=== PATIENT | male | born 2005 | race Caucasian/White ===

== ENCOUNTER 2023-06-04 14:31 | Emergency (ER) | payer MEDICAID, SELFPAY ==
[2023-06-04 14:48] VITALS: BP 130/74; PULSE 81; RESP 14; TEMP 36.8; O2SAT 98; BMI 25.8
[2023-06-04 16:17] LABS: Basophils % 0.3 %; Eosinophils # 0.2 10^3/uL (0.0-0.8); Eosinophils % 1.6 %; Hematocrit 39.3 % (42.0-52.0); Hemoglobin 12.5 g/dL (11.7-16.6); Lymphocytes # 1.3 10^3/uL (1.5-6.5); Lymphocytes % 13.6 %; Mean Corpuscular HGB Conc 31.8 g/dL (30.0-36.0); Mean Corpuscular Hemoglobin 26.6 pg (28.0-34.0); Mean Corpuscular Volume 83.6 fl (80-94); Mean Platelet Volume 8.9 fL (7.4-10.4); Monocytes # 0.7 10^3/uL (0.2-0.9); Monocytes % 7.2 %; Neutrophils # 7.07 10^3/uL (1.8-8.0); Neutrophils % 77.1 %; Nucleated Red Blood Cells % 0 %; Platelet Count 305 10^3/cmm (130-400); Red Cell Distribution Width 12.2 % (12.1-15.1); White Blood Count 9.2 10^3/uL (4.5-13.0)
[2023-06-04] MEDS: lidocaine 1% INJ 10 mL (per mL) 5 ML INTRADERMA (19:07)
[2023-06-04 20:35] VITALS: PULSE 89; RESP 16; O2SAT 96
--- NOTE | 2023-06-04 21:49 | W.ED.SKABFB ---
HPI - Skin/Abscess/Foreign Bdy General: Chief complaint: Skin/Abscess/Foreign Body Stated complaint: Spot on rear Time Seen by Provider: 06/04/23 18:16 Source: patient Mode of arrival: ambulatory Limitations: no limitations History of Present Illness: Patient presents to the emergency department today for evaluation treatment of worsening redness, swelling, and tenderness of his right buttock. Patient states that 3 weeks ago he got what looked like a bite to his right inferior gluteal region. He states it really did not change much for quite some time but, over the last few days has gotten significantly worse with worsening redness, swelling, and pain. He admits he had been picking and squeezing at the area previously. He denies any known history of MRSA. Review of Systems General: Reports: 10 or more systems reviewed and unremarkable except in HPI and below Physical Exam Const: COMMON NORMALS: no acute distress, patient oriented x3 and alert HENMT: COMMON NORMALS: normocephalic, atraumatic and hearing grossly normal bilaterally HEAD & SCALP: normocephalic and atraumatic Eye: COMMON NORMALS: Equal, round and reactive pupils present, EOMs intact bilaterally and conjunctivae normal CONJUNCTIVA: Yes conjunctivae normal PUPIL: Yes Equal, round and reactive pupils present Neck/C-Spine: COMMON NORMALS: full ROM and no JVD Lymph: LYMPHATIC: no lymphadenopathy noted Resp: COMMON NORMALS: normal respiratory effort, No retractions and No use of accessory muscles Cardio: COMMON NORMALS: no JVD and regular rate RATE: regular rate Neuro: COMMON NORMALS: patient oriented x3 SENSORIUM/ORIENTATION: Yes alert Psych: COMMON NORMALS: mental status grossly normal, Normal thought process present, cooperative and normal affect THOUGHT PROCESS: Normal thought process present Skin: COMMON NORMALS: no rashes or lesions noted and turgor normal NARRATIVE SKIN EXAM: Patient has an area of erythematous induration to the right inferior medial glute approximately 6 cm in diameter. There is noticeable central fluctuance. It is tender to touch. GENERAL SKIN EXAM: no rashes or lesions noted and turgor normal Procedures Abscess I/D Site: other (Right gluteus) Side (if applicable): right Sedation/analgesia: none Local Anesthetic: lidocaine 1% Amount of anesthesia used (mL): 3 Technique: incised with #11 blade Amount of fluid expressed (mL): 6 Irrigation: Yes Packing used?: plain Complications: other (Patient is extremely anxious and had a hard time remaining still. He got nauseated.) Course Vital Signs: Vital signs: Vital Signs Temperature 98.2 F 06/04/23 14:48 Pulse Rate 89 06/04/23 20:35 Respiratory Rate 16 06/04/23 20:35 Blood Pressure 130/74 06/04/23 14:48 Pulse Oximetry 96 06/04/23 20:35 Oxygen Delivery Me thod Room Air 06/04/23 14:48 MDM - Skin/Abscess/Foreign Bdy Medicial Decision Making Patient presented to the emergency department for concerns of worsening area of cellulitis. Over the last couple of days sounds like it is developed into an abscess. It is not spontaneously draining and, on examination was found to have a significant area of fluctuance. Abscess was locally anesthetized and 11 blade used to create a 0.75 cm incision. There was spontaneous draining of thick green and yellow material. Wound was prodded to continue the release of the infectious material. Due to the depth of the abscess, we did place wound packing. Patient took approximately 4 cm of plain wood packing within the wound. Wound was then covered with bandaging. He was told to return in 48 hours for wound packing removal. Patient was started on Bactrim due to concerns for potential MRSA. Patient was given return precautions. He was given a couple of days off work. Patient verbalized understanding and agreement to treatment plan. Differential Diagnosis Likely abscess of skin or subcutaneous tissue, cellulitis, eczema, insect bites and impetigo Lab Data 06/04/23 16:02 Laboratory Results WBC 9.2 10^3/uL (4.5-13.0) 06/04/23 16:02 RBC 4.70 10^6/uL (4.1-5.3) 06/04/23 16:02 Hgb 12.5 g/dL (11.7-16.6) 06/04/23 16:02 Hct 39.3 % (42.0-52.0) L 06/04/23 16:02 MCV 83.6 fl (80-94) 06/04/23 16:02 MCH 26.6 pg (28.0-34.0) L 06/04/23 16:02 MCHC 31.8 g/dL (30.0-36.0) 06/04/23 16:02 RDW 12.2 % (12.1-15.1) 06/04/23 16:02 Plt Count 305 10^3/cmm (130-400) 06/04/23 16:02 MPV 8.9 fL (7.4-10.4) 06/04/23 16:02 Neut % (Auto) 77.1 % 06/04/23 16:02 Lymph % (Auto) 13.6 % 06/04/23 16:02 Borden % (Auto) 7.2 % 06/04/23 16:02 Eos % (Auto) 1.6 % 06/04/23 16:02 Baso % (Auto) 0.3 % 06/04/23 16:02 Neut # (Auto) 7.07 10^3/uL (1.8-8.0) 06/04/23 16:02 Lymph # (Auto) 1.3 10^3/uL (1.5-6.5) L 06/04/23 16:02 Borden # (Auto) 0.7 10^3/uL (0.2-0.9) 06/04/23 16:02 Eos # (Auto) 0.2 10^3/uL (0.0-0.8) 06/04/23 16:02 Baso # (Auto) 0.0 10^3/uL (0.0-0.1) 06/04/23 16:02 Nucleated RBC % (auto) 0 % 06/04/23 16:02 Nucleated RBCs # 0.0 /100WBC 06/04/23 16:02 Discharge Plan Discharge Patient Disposition: Home Clinical Impression: Abscess of skin or subcutaneous tissue, Cellulitis Condition: Stable Prescriptions: New sulfamethoxazole-trimethoprim 800-160 mg tablet 1 tab PO BID 10 Days Qty: 20 0RF Discharge Orders: Discharge ED (Routine); Ordered 06/04/23 Ordered By: Millicent Reese Discharge Diet: Usual diet Discharge Activity: Increase activity as tolerated Patient Instructions: Cellulitis (ED), Abscess (ED) Activity Restrictions/Additional Instructions: Examination today shows that you have developed not only cellulitis-infection of the skin, but also an abscess-a pocket of infection within the wound. Antibiotics greatly help treat cellulitis but, often do not work on abscesses due to the amount of pus present in the wound. For that reason, we numbed your skin and made an incision which released a significant amount of green and yellow purulent material from the abscess. You do have wound packing in place to help act as a wick to help continue releasing any residual purulent material from the wound without allowing the incision to heal prematurely. You need to have a wound check in 48 hours here in the emergency department to have the wound packing removed. I am also starting you on antibiotics to give you coverage for both staph and strep infection from the skin. You may still be tender and sore in the area for another couple of days. Watch for any new onset fever, hip or leg pain, or spreading redness past your bandaging. If these agree need to be seen sooner than the 48-hour recheck. 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
== END 2023-06-04 20:36 | disposition home or self-care (01) ==
PROVIDERS: Physician Assistant; Emergency Provider Physician Assistant
DX: L02.31 Cutaneous abscess of buttock (principal); L03.317 Cellulitis of buttock
CPT/HCPCS: 10060; 85025; 99283